=== PATIENT | female | born 1930 | race Caucasian/White ===

== ENCOUNTER 2017-07-19 09:11 | Inpatient (IN) ==
[2017-07-19 09:49] LABS: Basophils # 0.1 10*3/uL (0.0-0.2); Basophils % 0.8 % (0.0-0.8); Eosinophils # 0.1 10*3/uL (0.0-0.87); Eosinophils % 1.9 % (0.00-10.9); Hematocrit 38.5 VOL% (35.7-47.0); Hemoglobin 12.9 GM/DL (12.0-16.0); Immature Granulocytes % 0.4 %; Immature Granulocytes Absolute 0.03 #; Lymphocytes # 1.1 10*3/uL (1.4-4.0); Lymphocytes % 14.6 % (21.3-54.2); Mean Corpuscular HGB Conc 33.5 GM/DL (32-36); Mean Corpuscular Hemoglobin 30 PG (27-34); Mean Corpuscular Volume 89.7 FL (87-102); Mean Platelet Volume 9.8 FL (9.6-12.0); Monocytes # 0.5 10*3/uL (0.11-0.8); Monocytes % 6.9 % (1.7-12.7); Neutrophils # 5.5 10*3/uL (1.4-7.4); Neutrophils % 75.4 % (38.7-73.9); Platelet Count 228 T/CUMM (130-400); Red Blood Count 4.29 MC/CUMM (3.8-5.5); Red Cell Distribution Width 12.7 % (9.3-17.3); White Blood Count 7.3 T/CUMM (4-12)
[2017-07-19] MEDS ORDERED: amLODIPine 5 MG TABLET PO STA (09:50)
[2017-07-19 10:07] LABS: PT Patient Result 10.5 SECS
[2017-07-19 10:25] LABS: Albumin 3.8 G/DL (3.4-5.0); Bilirubin,Total 0.4 MG/DL (0.2-1.0); Calcium 8.9 MG/DL (8.5-10.1); Osmolality,Calculated 274.8 MOS/KG (273-304); Potassium 4.1 MMOL/L (3.5-5.1); Total Protein 7.5 G/DL (6.4-8.3)
[2017-07-19 10:26] LABS: Apearance,Urine CLEAR (Clear); Bilirubin,Urine Negative (Negative); Blood, Urine Negative (Negative); Glucose,Urine (UA) Negative (Negative); Ketones,Urine Negative (Negative); Nitrite,Urine Negative (Negative); Protein,Urine Negative; RBC,Urine <1 /HPF (0-4); Squamous Epithelial Cell,Urine Occasional /HPF (0-10); Urine Color Straw (Yellow); Urine Specific Gravity 1.006 (1.001-1.035); Urine Urobilinogen < 2.0 EU/DL (0.2-1.0); WBC,Urine <1 /HPF (0-6)
[2017-07-19 10:30] LABS: Blood Urea Nitrogen 15 MG/DL (7-18); Calcium 8.8 MG/DL (8.5-10.1); Glucose 110 MG/DL (74-106); Potassium 4.3 MMOL/L (3.5-5.1); Sodium 136 MMOL/L (136-145); Troponin I Only < 0.015 NG/ML (0.00-0.045)
[2017-07-19] MEDS ORDERED: ASPIRIN 325 MG TABLET PO STA (10:45)
[2017-07-19] MEDS ORDERED: POTASSIUM CHLORIDE 20 MEQ TABLET PO STA (10:56)
[2017-07-19 11:07] LABS: Risk Ratio 5.92; VLDL CHOLESTEROL 46.6 MG/DL
[2017-07-19] MEDS ORDERED: ONDANSETRON 4 MG/2 ML VIAL IV PRN (11:49)
[2017-07-19] MEDS ORDERED: ACETAMINOPHEN 325 MG TABLET PO PRN (11:49)
[2017-07-19] MEDS ORDERED: hydrALAZINE 20 MG/1 ML VIAL IV PRN (15:16)
[2017-07-19] MEDS: DICLOFENAC SODIUM 50 MG TABLET PO SCH (17:37)
[2017-07-20 06:23] LABS: Basophils # 0.1 10*3/uL (0.0-0.2); Eosinophils # 0.2 10*3/uL (0.0-0.87); Eosinophils % 1.8 % (0.00-10.9); Hematocrit 38.1 VOL% (35.7-47.0); Hemoglobin 12.8 GM/DL (12.0-16.0); Immature Granulocytes % 0.6 %; Immature Granulocytes Absolute 0.05 #; Lymphocytes # 1.3 10*3/uL (1.4-4.0); Lymphocytes % 15.4 % (21.3-54.2); Mean Corpuscular HGB Conc 33.6 GM/DL (32-36); Mean Corpuscular Hemoglobin 31 PG (27-34); Mean Corpuscular Volume 90.7 FL (87-102); Mean Platelet Volume 10.1 FL (9.6-12.0); Monocytes # 0.7 10*3/uL (0.11-0.8); Monocytes % 8.6 % (1.7-12.7); Neutrophils % 72.6 % (38.7-73.9); Platelet Count 229 T/CUMM (130-400); Red Cell Distribution Width 12.7 % (9.3-17.3); White Blood Count 8.2 T/CUMM (4-12)
[2017-07-20 06:53] LABS: Osmolality,Calculated 277.5 MOS/KG (273-304); Potassium 3.9 MMOL/L (3.5-5.1)
[2017-07-20] MEDS: LEVOTHYROXINE 50 MCG TABLET PO SCH (07:19)
[2017-07-20] MEDS: ASPIRIN EC 81 MG TABLET PO SCH (08:47)
[2017-07-20 09:00] LABS: Apearance,Urine Slightly Hazy (Clear); Bacteria,Urine Occasional /HPF (Few); Bilirubin,Urine Negative (Negative); Blood, Urine Negative (Negative); Glucose,Urine (UA) Negative (Negative); Hyaline Casts,Urine 5 /LPF (0-3); Ketones,Urine 20 mg/dL (Negative); Mucus,Urine Occasional /LPF (Occasional); Nitrite,Urine Negative (Negative); Protein,Urine Negative; RBC,Urine 1 /HPF (0-4); Squamous Epithelial Cell,Urine Occasional /HPF (0-10); Urine Color Yellow (Yellow); Urine Specific Gravity 1.013 (1.001-1.035); Urine Urobilinogen < 2.0 EU/DL (0.2-1.0); WBC,Urine 3 /HPF (0-6)
[2017-07-20] MEDS: MULTIVITAMIN (CENTRUM) TABLET PO SCH (10:17)
[2017-07-20] MEDS: DICLOFENAC SODIUM 50 MG TABLET PO SCH (10:18)
[2017-07-20] MEDS: PANTOPRAZOLE 40 MG TABLET PO SCH (10:18)
[2017-07-20] MEDS: HEPARIN DRIP 25,000 UNITS/500 ML PREMIX IV SCH (15:42)
[2017-07-20] MEDS: ATORVASTATIN 40 MG TABLET PO SCH (20:31)
[2017-07-20] MEDS ORDERED: HEPARIN 5,000 UNIT/1 ML VIAL IV ONE (23:00)
[2017-07-21 05:31] LABS: Basophils % 0.3 % (0.0-0.8); Eosinophils % 0.2 % (0.00-10.9); Hematocrit 38.3 VOL% (35.7-47.0); Hemoglobin 13.4 GM/DL (12.0-16.0); Immature Granulocytes % 0.5 %; Immature Granulocytes Absolute 0.07 #; Lymphocytes # 1.7 10*3/uL (1.4-4.0); Lymphocytes % 13.3 % (21.3-54.2); Mean Corpuscular Hemoglobin 30 PG (27-34); Mean Corpuscular Volume 86.8 FL (87-102); Mean Platelet Volume 10.1 FL (9.6-12.0); Monocytes % 7.4 % (1.7-12.7); Neutrophils # 10.1 10*3/uL (1.4-7.4); Neutrophils % 78.3 % (38.7-73.9); Platelet Count 255 T/CUMM (130-400); Red Blood Count 4.41 MC/CUMM (3.8-5.5); Red Cell Distribution Width 12.7 % (9.3-17.3); White Blood Count 12.9 T/CUMM (4-12)
[2017-07-21] MEDS: LEVOTHYROXINE 50 MCG TABLET PO SCH (05:57)
[2017-07-21 06:19] LABS: Albumin 3.7 G/DL (3.4-5.0); Bilirubin,Direct 0.11 MG/DL (0.0-0.20); Bilirubin,Total 1.1 MG/DL (0.2-1.0); Osmolality,Calculated 267.4 MOS/KG (273-304); Potassium 3.5 MMOL/L (3.5-5.1); Total Protein 7.7 G/DL (6.4-8.3)
[2017-07-21] MEDS: MULTIVITAMIN (CENTRUM) TABLET PO SCH (09:00)
[2017-07-21] MEDS: PANTOPRAZOLE 40 MG TABLET PO SCH (09:00)
[2017-07-21] MEDS: ASPIRIN EC 81 MG TABLET PO SCH (09:01)
[2017-07-21] MEDS ORDERED: HEPARIN 5,000 UNIT/1 ML VIAL IV ONE (11:52)
[2017-07-21] MEDS: HEPARIN DRIP 25,000 UNITS/500 ML PREMIX IV SCH (18:24)
[2017-07-21] MEDS: ATORVASTATIN 40 MG TABLET PO SCH (20:10)
[2017-07-22] MEDS: HEPARIN DRIP 25,000 UNITS/500 ML PREMIX IV SCH ×3 (00:50→15:49)
[2017-07-22] MEDS: LEVOTHYROXINE 50 MCG TABLET PO SCH (05:36)
[2017-07-22 06:01] LABS: Basophils # 0.1 10*3/uL (0.0-0.2); Basophils % 0.5 % (0.0-0.8); Eosinophils # 0.2 10*3/uL (0.0-0.87); Eosinophils % 1.7 % (0.00-10.9); Hematocrit 39.9 VOL% (35.7-47.0); Hemoglobin 13.6 GM/DL (12.0-16.0); Immature Granulocytes % 0.7 %; Immature Granulocytes Absolute 0.09 #; Lymphocytes # 2.2 10*3/uL (1.4-4.0); Lymphocytes % 16.4 % (21.3-54.2); Mean Corpuscular HGB Conc 34.1 GM/DL (32-36); Mean Corpuscular Hemoglobin 31 PG (27-34); Mean Corpuscular Volume 89.7 FL (87-102); Mean Platelet Volume 9.7 FL (9.6-12.0); Monocytes % 7.8 % (1.7-12.7); Neutrophils # 9.6 10*3/uL (1.4-7.4); Neutrophils % 72.9 % (38.7-73.9); Platelet Count 230 T/CUMM (130-400); Red Blood Count 4.45 MC/CUMM (3.8-5.5); Red Cell Distribution Width 12.8 % (9.3-17.3); White Blood Count 13.1 T/CUMM (4-12)
[2017-07-22 06:16] LABS: PT Patient Result 10.9 SECS
[2017-07-22 06:37] LABS: Partial Thromboplastin Time 48.2 SECS (0-40)
[2017-07-22 06:43] LABS: Calcium 8.7 MG/DL (8.5-10.1); Osmolality,Calculated 271.1 MOS/KG (273-304); Potassium 3.7 MMOL/L (3.5-5.1); Thyroid Stimulating Hormone 4.53 uIU/ml (0.358-3.74)
[2017-07-22] MEDS: PANTOPRAZOLE 40 MG TABLET PO SCH (08:46)
[2017-07-22] MEDS: ASPIRIN EC 81 MG TABLET PO SCH (08:46)
[2017-07-22] MEDS: MULTIVITAMIN (CENTRUM) TABLET PO SCH (08:46)
[2017-07-22 11:29] LABS: Apearance,Urine CLOUDY (Clear); Bacteria,Urine Many /HPF (Few); Bilirubin,Urine Negative (Negative); Blood, Urine Moderate mg/dL (Negative); Glucose,Urine (UA) Negative (Negative); Ketones,Urine Negative (Negative); Nitrite,Urine Positive (Negative); Protein,Urine Negative; Squamous Epithelial Cell,Urine Occasional /HPF (0-10); Urine Color Amber (Yellow); Urine Specific Gravity 1.014 (1.001-1.035); Urine Urobilinogen < 2.0 EU/DL (0.2-1.0); WBC,Urine 234 /HPF (0-6)
[2017-07-22] MEDS ORDERED: ONDANSETRON 4 MG/2 ML VIAL IV PRN (12:15)
[2017-07-22] MEDS ORDERED: ACETAMINOPHEN 325 MG TABLET PO PRN ×2 (12:15→13:08)
[2017-07-22] MEDS: LEVOFLOXACIN INJ 500 MG in PREMIX 1 EACH IV SCH (14:11)
[2017-07-22] MEDS: ATORVASTATIN 40 MG TABLET PO SCH (21:03)
[2017-07-23] MEDS ORDERED: HALOPERIDOL 5 MG/ML AMP IM ONE (00:30)
[2017-07-23 01:39] LABS: Basophils # 0.1 10*3/uL (0.0-0.2); Basophils % 0.8 % (0.0-0.8); Eosinophils # 0.2 10*3/uL (0.0-0.87); Eosinophils % 1.6 % (0.00-10.9); Hematocrit 38.4 VOL% (35.7-47.0); Hemoglobin 13.2 GM/DL (12.0-16.0); Immature Granulocytes % 0.5 %; Immature Granulocytes Absolute 0.07 #; Lymphocytes % 14.8 % (21.3-54.2); Mean Corpuscular HGB Conc 34.4 GM/DL (32-36); Mean Corpuscular Hemoglobin 30 PG (27-34); Mean Corpuscular Volume 88.5 FL (87-102); Mean Platelet Volume 9.6 FL (9.6-12.0); Monocytes # 1.1 10*3/uL (0.11-0.8); Neutrophils # 9.8 10*3/uL (1.4-7.4); Neutrophils % 74.3 % (38.7-73.9); Platelet Count 228 T/CUMM (130-400); Red Blood Count 4.34 MC/CUMM (3.8-5.5); Red Cell Distribution Width 12.6 % (9.3-17.3); White Blood Count 13.2 T/CUMM (4-12)
[2017-07-23 02:57] LABS: Albumin 3.7 G/DL (3.4-5.0); Bilirubin,Direct 0.15 MG/DL (0.0-0.20); Bilirubin,Indirect 0.4 MG/DL (0.0-1.0); Bilirubin,Total 0.5 MG/DL (0.2-1.0); Calcium 8.9 MG/DL (8.5-10.1); Osmolality,Calculated 270.2 MOS/KG (273-304); Potassium 3.7 MMOL/L (3.5-5.1); Total Protein 7.4 G/DL (6.4-8.3)
[2017-07-23] MEDS: HEPARIN DRIP 25,000 UNITS/500 ML PREMIX IV SCH (05:23)
[2017-07-23] MEDS: LEVOTHYROXINE 50 MCG TABLET PO SCH (06:22)
[2017-07-23] MEDS: MULTIVITAMIN (CENTRUM) TABLET PO SCH (09:43)
[2017-07-23] MEDS: PANTOPRAZOLE 40 MG TABLET PO SCH (09:44)
[2017-07-23] MEDS: ASPIRIN EC 81 MG TABLET PO SCH (09:44)
[2017-07-23] MEDS: LEVOFLOXACIN INJ 500 MG in PREMIX 1 EACH IV SCH (16:57)
[2017-07-23 19:24] LABS: Basophils # 0.1 10*3/uL (0.0-0.2); Basophils % 0.7 % (0.0-0.8); Eosinophils # 0.3 10*3/uL (0.0-0.87); Eosinophils % 2.5 % (0.00-10.9); Hematocrit 39.8 VOL% (35.7-47.0); Hemoglobin 13.2 GM/DL (12.0-16.0); Immature Granulocytes % 0.9 %; Immature Granulocytes Absolute 0.11 #; Lymphocytes # 1.5 10*3/uL (1.4-4.0); Lymphocytes % 12.7 % (21.3-54.2); Mean Corpuscular HGB Conc 33.2 GM/DL (32-36); Mean Corpuscular Hemoglobin 30 PG (27-34); Mean Corpuscular Volume 89.4 FL (87-102); Monocytes % 8.6 % (1.7-12.7); Neutrophils % 74.6 % (38.7-73.9); Platelet Count 274 T/CUMM (130-400); Red Blood Count 4.45 MC/CUMM (3.8-5.5); Red Cell Distribution Width 12.9 % (9.3-17.3)
[2017-07-23 19:36] LABS: Albumin 3.5 G/DL (3.4-5.0); Bilirubin,Total 0.4 MG/DL (0.2-1.0); Calcium 9.1 MG/DL (8.5-10.1); Osmolality,Calculated 264.7 MOS/KG (273-304); Potassium 3.8 MMOL/L (3.5-5.1); Total Protein 7.8 G/DL (6.4-8.3)
[2017-07-23] MEDS: ATORVASTATIN 40 MG TABLET PO SCH (21:28)
[2017-07-24] MEDS: LEVOTHYROXINE 50 MCG TABLET PO SCH (06:25)
[2017-07-24] MEDS: MULTIVITAMIN (CENTRUM) TABLET PO SCH (10:27)
[2017-07-24] MEDS: HEPARIN DRIP 25,000 UNITS/500 ML PREMIX IV SCH ×2 (10:27→14:52)
[2017-07-24] MEDS: ASPIRIN EC 81 MG TABLET PO SCH (10:27)
[2017-07-24] MEDS: PANTOPRAZOLE 40 MG TABLET PO SCH (10:27)
[2017-07-24] MEDS ORDERED: BISACODYL 10 MG SUPP RECTAL PRN (11:39)
[2017-07-24] MEDS: LEVOFLOXACIN INJ 500 MG in PREMIX 1 EACH IV SCH (14:53)
[2017-07-24] MEDS ORDERED: MAGNESIUM HYDROXIDE SUSP 30 ML UDCUP PO ONE (15:29)
[2017-07-24] MEDS ORDERED: LACTULOSE 20 GM/30 ML UDCUP PO ONE (15:30)
[2017-07-24] MEDS ORDERED: BISACODYL 5 MG TABLET PO ONE (15:31)
[2017-07-24] MEDS: ATORVASTATIN 40 MG TABLET PO SCH (20:43)
[2017-07-25] MEDS: LEVOTHYROXINE 50 MCG TABLET PO SCH (05:44)
[2017-07-25] MEDS ORDERED: HEPARIN 10,000 UNIT/10 ML VIAL ONE (06:55)
[2017-07-25] MEDS ORDERED: ETOMIDATE 40 MG/20 ML VIAL IV ONE (06:55)
[2017-07-25] MEDS ORDERED: MIDAZOLAM 2 MG/2 ML VIAL ONE (06:55)
[2017-07-25] MEDS ORDERED: HEPARIN/NACL 0.9% 2 UNITS/ML 500 ML IV ONE (06:55)
[2017-07-25] MEDS ORDERED: PHENYLEPHRINE 10 MG/1 ML VIAL IV ONE (06:55)
[2017-07-25] MEDS ORDERED: fentaNYL 100 MCG/2 ML VIAL ONE (06:55)
[2017-07-25] MEDS ORDERED: NITROGLYCERIN DRIP 50 MG/250 ML BOTTLE IV ONE (06:56)
[2017-07-25] MEDS ORDERED: LACTATED RINGERS 1,000 ML IV ONE (06:56)
[2017-07-25] MEDS ORDERED: ROCURONIUM 100 MG/10 ML VIAL IV ONE (06:56)
[2017-07-25] MEDS ORDERED: PROTAMINE SULFATE 50 MG/5 ML VIAL IV ONE (06:56)
[2017-07-25] MEDS ORDERED: SODIUM CHLORIDE 0.9% 250 ML IV ONE (06:56)
[2017-07-25] MEDS ORDERED: VANCOMYCIN INJ 500 MG in SODIUM CHLORIDE 0.9% 100 ML IV ONE (07:00)
[2017-07-25] MEDS ORDERED: HEPARIN 5,000 UNIT/1 ML VIAL ONE (08:03)
[2017-07-25] MEDS ORDERED: DEXTROSE 50% 25 GM/50 ML VIAL IV PRN (10:29)
[2017-07-25] MEDS ORDERED: HYDROmorphone 2 MG/1 ML VIAL IV PRN ×2 (10:29)
[2017-07-25] MEDS ORDERED: ONDANSETRON 4 MG/2 ML VIAL IV PRN ×2 (10:29→11:06)
[2017-07-25] MEDS ORDERED: GLUCAGON 1 MG VIAL IM PRN (10:29)
[2017-07-25] MEDS ORDERED: NALOXONE 0.4 MG/ML VIAL IV PRN (10:29)
[2017-07-25] MEDS ORDERED: PROMETHAZINE 25 MG/1 ML VIAL IM PRN (10:29)
[2017-07-25] MEDS ORDERED: NITROPRUSSIDE 100 MG in DEXTROSE 5% 250 ML IV SCH (10:30)
[2017-07-25] MEDS ORDERED: PHENYLEPHRINE DRIP 40 MG/250 ML PREMIX IV SCH (10:30)
[2017-07-25] MEDS ORDERED: DEXAMETHASONE 10 MG/1 ML VIAL ONE (10:51)
[2017-07-25] MEDS ORDERED: SEVOFLURANE 1 UNIT/15 MINUTE INH ONE (10:52)
[2017-07-25] MEDS: MORPHINE 10 MG/1 ML VIAL IV PRN ×2 (11:00→11:05)
[2017-07-25] MEDS ORDERED: MORPHINE 4 MG/1 ML VIAL IV PRN ×2 (11:00)
[2017-07-25] MEDS ORDERED: ONDANSETRON 4 MG/2 ML VIAL ONE (11:02)
[2017-07-25] MEDS ORDERED: MORPHINE 10 MG/1 ML VIAL ONE (11:02)
[2017-07-25] MEDS: POLYETHYLENE GLYCOL POWDER 17 GM PACK PO SCH (11:23)
[2017-07-25] MEDS: PANTOPRAZOLE 40 MG TABLET PO SCH (11:23)
[2017-07-25] MEDS: MULTIVITAMIN (CENTRUM) TABLET PO SCH (11:23)
[2017-07-25] MEDS: ASPIRIN EC 81 MG TABLET PO SCH (11:23)
[2017-07-25] MEDS: LACTATED RINGERS 1,000 ML IV SCH ×2 (12:06→21:15)
[2017-07-25] MEDS: LEVOFLOXACIN INJ 500 MG in PREMIX 1 EACH IV SCH (14:15)
[2017-07-25] MEDS: hydrALAZINE 20 MG/1 ML VIAL IV PRN ×2 (15:37→20:44)
[2017-07-25] MEDS: ATORVASTATIN 40 MG TABLET PO SCH (20:26)
[2017-07-25] MEDS ORDERED: CLORAZEPATE 3.75 MG TABLET PO PRN (22:44)
[2017-07-26 03:52] LABS: Basophils % 0.2 % (0.0-0.8); Hematocrit 34.2 VOL% (35.7-47.0); Hemoglobin 11.6 GM/DL (12.0-16.0); Immature Granulocytes % 0.9 %; Immature Granulocytes Absolute 0.11 #; Lymphocytes # 0.9 10*3/uL (1.4-4.0); Lymphocytes % 7.2 % (21.3-54.2); Mean Corpuscular HGB Conc 33.9 GM/DL (32-36); Mean Corpuscular Hemoglobin 31 PG (27-34); Mean Corpuscular Volume 90.7 FL (87-102); Mean Platelet Volume 9.9 FL (9.6-12.0); Neutrophils # 10.5 10*3/uL (1.4-7.4); Neutrophils % 83.7 % (38.7-73.9); Platelet Count 237 T/CUMM (130-400); Red Blood Count 3.77 MC/CUMM (3.8-5.5); White Blood Count 12.6 T/CUMM (4-12)
[2017-07-26 04:25] LABS: Calcium 8.1 MG/DL (8.5-10.1)
[2017-07-26 04:26] LABS: Osmolality,Calculated 268.4 MOS/KG (273-304)
[2017-07-26] MEDS: LEVOTHYROXINE 50 MCG TABLET PO SCH (05:48)
[2017-07-26] MEDS: LACTATED RINGERS 1,000 ML IV SCH ×2 (06:58→18:21)
[2017-07-26] MEDS: PANTOPRAZOLE 40 MG TABLET PO SCH (08:01)
[2017-07-26] MEDS: POLYETHYLENE GLYCOL POWDER 17 GM PACK PO SCH (08:01)
[2017-07-26] MEDS: ASPIRIN EC 81 MG TABLET PO SCH (08:01)
[2017-07-26] MEDS: CLOPIDOGREL 75 MG TABLET PO SCH (08:01)
[2017-07-26] MEDS: MULTIVITAMIN (CENTRUM) TABLET PO SCH (08:02)
[2017-07-26] MEDS ORDERED: diphenhydrAMINE CAP 25 MG CAPSULE PO PRN (10:32)
[2017-07-26] MEDS: ATORVASTATIN 40 MG TABLET PO SCH (20:25)
[2017-07-27] MEDS: LACTATED RINGERS 1,000 ML IV SCH (04:00)
[2017-07-27] MEDS: LEVOTHYROXINE 50 MCG TABLET PO SCH (06:09)
[2017-07-27] MEDS: CLOPIDOGREL 75 MG TABLET PO SCH (09:36)
[2017-07-27] MEDS: ASPIRIN EC 81 MG TABLET PO SCH (09:36)
[2017-07-27] MEDS: MULTIVITAMIN (CENTRUM) TABLET PO SCH (09:36)
[2017-07-27] MEDS: POLYETHYLENE GLYCOL POWDER 17 GM PACK PO SCH (09:36)
[2017-07-27] MEDS: PANTOPRAZOLE 40 MG TABLET PO SCH (09:36)
[2017-07-27 11:21] VITALS: BP 154/96
== END 2017-07-27 11:50 | DRG 38 ==
LOC: N.ED 09:11 → SUATTDRO 10:44 → N.EDINP 10:44 → N.2E 12:21 → N.CC 07-20 07:39 → N.TELES 07-22 16:28 → N.ICU 07-25 09:24 → N.3E 07-26 16:51
PROVIDERS: ADMIT Internal Medicine; ATTEND Internal Medicine Geriatric Medicine

== ENCOUNTER 2017-12-10 03:00 | Inpatient (IN) ==
[2017-12-10] MEDS ORDERED: ONDANSETRON 4 MG/2 ML VIAL IV STA (03:28)
[2017-12-10] MEDS ORDERED: MORPHINE 4 MG/1 ML VIAL IV STA ×2 (03:28→04:54)
[2017-12-10 03:54] LABS: Basophils # 0.1 10*3/uL (0.0-0.2); Basophils % 0.7 % (0.0-0.8); Eosinophils # 0.5 10*3/uL (0.0-0.87); Eosinophils % 5.5 % (0.00-10.9); Hematocrit 32.2 VOL% (35.7-47.0); Hemoglobin 10.5 GM/DL (12.0-16.0); Immature Granulocytes % 0.6 %; Immature Granulocytes Absolute 0.05 #; Lymphocytes # 1.3 10*3/uL (1.4-4.0); Mean Corpuscular HGB Conc 32.6 GM/DL (32-36); Mean Corpuscular Hemoglobin 30 PG (27-34); Mean Corpuscular Volume 91.5 FL (87-102); Mean Platelet Volume 9.8 FL (9.6-12.0); Monocytes # 0.5 10*3/uL (0.11-0.8); Monocytes % 5.6 % (1.7-12.7); Neutrophils # 6.3 10*3/uL (1.4-7.4); Neutrophils % 72.6 % (38.7-73.9); Platelet Count 188 T/CUMM (130-400); Red Blood Count 3.52 MC/CUMM (3.8-5.5); Red Cell Distribution Width 13.1 % (9.3-17.3); White Blood Count 8.6 T/CUMM (4-12)
[2017-12-10 04:02] LABS: INR 1.1; PT Patient Result 11.2 SECS; Partial Thromboplastin Time 23.7 SECS (0-40)
[2017-12-10 04:14] LABS: Albumin 3.3 G/DL (3.4-5.0); Bilirubin,Total 0.5 MG/DL (0.2-1.0); Calcium 8.6 MG/DL (8.5-10.1); Osmolality,Calculated 278.4 MOS/KG (273-304); Potassium 3.3 MMOL/L (3.5-5.1); Total Protein 6.3 G/DL (6.4-8.3)
[2017-12-10] MEDS ORDERED: MORPHINE 4 MG/1 ML VIAL IV PRN (05:23)
[2017-12-10] MEDS ORDERED: ACETAMINOPHEN 325 MG TABLET PO PRN (05:23)
[2017-12-10] MEDS ORDERED: ONDANSETRON 4 MG/2 ML VIAL IV PRN (05:23)
[2017-12-10] MEDS: SODIUM CHLORIDE 0.9% 1,000 ML IV SCH (06:39)
[2017-12-10 07:26] LABS: Apearance,Urine CLEAR (Clear); Bilirubin,Urine Negative (Negative); Blood, Urine Small mg/dL (Negative); Glucose,Urine (UA) Negative (Negative); Ketones,Urine Negative (Negative); Mucus,Urine Occasional /LPF (Occasional); Nitrite,Urine Negative (Negative); Protein,Urine Negative; RBC,Urine 5 /HPF (0-4); Squamous Epithelial Cell,Urine Occasional /HPF (0-10); Urine Color Yellow (Yellow); Urine Urobilinogen < 2.0 EU/DL (0.2-1.0); WBC,Urine 55 /HPF (0-6)
[2017-12-10] MEDS ORDERED: POTASSIUM CHLORIDE 20 MEQ TABLET PO ONE (08:26)
[2017-12-10] MEDS ORDERED: CLINDAMYCIN INJ 600 MG in PREMIX 1 EACH IV ONE ×2 (10:46→12:00)
[2017-12-10] MEDS ORDERED: BUPIVACAINE 0.5% 50 ML VIAL ONE (11:12)
[2017-12-10] MEDS ORDERED: EPINEPHrine 1 MG/ML VIAL ONE (11:12)
[2017-12-10] MEDS ORDERED: LACTULOSE 20 GM/30 ML UDCUP PO PRN (12:08)
[2017-12-10] MEDS ORDERED: MAGNESIUM HYDROXIDE SUSP 30 ML UDCUP PO PRN (12:08)
[2017-12-10] MEDS ORDERED: fentaNYL 100 MCG/2 ML VIAL ONE (12:39)
[2017-12-10] MEDS ORDERED: ROCURONIUM 100 MG/10 ML VIAL IV ONE (12:40)
[2017-12-10] MEDS ORDERED: ePHEDrine 50 MG/ML AMP ONE (12:40)
[2017-12-10] MEDS ORDERED: NEOSTIGMINE 10 MG/10 ML VIAL ONE (12:40)
[2017-12-10] MEDS ORDERED: ONDANSETRON 4 MG/2 ML VIAL ONE (12:40)
[2017-12-10] MEDS ORDERED: ETOMIDATE 40 MG/20 ML VIAL IV ONE (12:40)
[2017-12-10] MEDS ORDERED: ACETAMINOPHEN 1,000 MG/100 ML VIAL IV ONE (12:40)
[2017-12-10] MEDS ORDERED: GLYCOPYRROLATE 0.4 MG/2 ML VIAL ONE (12:40)
[2017-12-10] MEDS ORDERED: KETOROLAC 30 MG/1 ML VIAL ONE (12:40)
[2017-12-10] MEDS ORDERED: SEVOFLURANE 1 UNIT/15 MINUTE INH ONE (12:41)
[2017-12-10] MEDS ORDERED: SUGAMMADEX 200 MG/2 ML VIAL IV ONE (14:01)
[2017-12-10 14:06] LABS: Basophils # 0.1 10*3/uL (0.0-0.2); Basophils % 0.6 % (0.0-0.8); Eosinophils # 0.5 10*3/uL (0.0-0.87); Eosinophils % 5.2 % (0.00-10.9); Hematocrit 32.4 VOL% (35.7-47.0); Hemoglobin 10.3 GM/DL (12.0-16.0); Immature Granulocytes % 0.5 %; Immature Granulocytes Absolute 0.05 #; Lymphocytes # 1.4 10*3/uL (1.4-4.0); Lymphocytes % 14.4 % (21.3-54.2); Mean Corpuscular HGB Conc 31.8 GM/DL (32-36); Mean Corpuscular Hemoglobin 30 PG (27-34); Mean Corpuscular Volume 94.2 FL (87-102); Mean Platelet Volume 9.9 FL (9.6-12.0); Monocytes # 0.9 10*3/uL (0.11-0.8); Monocytes % 9.2 % (1.7-12.7); Neutrophils % 70.1 % (38.7-73.9); Platelet Count 170 T/CUMM (130-400); Red Blood Count 3.44 MC/CUMM (3.8-5.5); White Blood Count 9.9 T/CUMM (4-12)
[2017-12-10] MEDS: CLINDAMYCIN INJ 600 MG in PREMIX 1 EACH IV SCH (19:13)
[2017-12-11] MEDS: SODIUM CHLORIDE 0.9% 1,000 ML IV SCH (03:14)
[2017-12-11] MEDS: MORPHINE 4 MG/1 ML VIAL IV PRN ×2 (03:31→18:00)
[2017-12-11] MEDS: CLINDAMYCIN INJ 600 MG in PREMIX 1 EACH IV SCH ×2 (03:42→11:11)
[2017-12-11 06:28] LABS: Basophils # 0.1 10*3/uL (0.0-0.2); Basophils % 0.9 % (0.0-0.8); Eosinophils # 0.6 10*3/uL (0.0-0.87); Eosinophils % 7.5 % (0.00-10.9); Hematocrit 28.3 VOL% (35.7-47.0); Hemoglobin 8.8 GM/DL (12.0-16.0); Immature Granulocytes % 0.4 %; Immature Granulocytes Absolute 0.03 #; Lymphocytes % 13.3 % (21.3-54.2); Mean Corpuscular HGB Conc 31.1 GM/DL (32-36); Mean Corpuscular Hemoglobin 30 PG (27-34); Mean Corpuscular Volume 96.6 FL (87-102); Mean Platelet Volume 10.6 FL (9.6-12.0); Monocytes # 0.6 10*3/uL (0.11-0.8); Monocytes % 7.7 % (1.7-12.7); Neutrophils # 5.5 10*3/uL (1.4-7.4); Neutrophils % 70.2 % (38.7-73.9); Platelet Count 166 T/CUMM (130-400); Red Blood Count 2.93 MC/CUMM (3.8-5.5); Red Cell Distribution Width 13.1 % (9.3-17.3); White Blood Count 7.8 T/CUMM (4-12)
[2017-12-11 06:42] LABS: Calcium 7.6 MG/DL (8.5-10.1); Osmolality,Calculated 280.3 MOS/KG (273-304)
[2017-12-11] MEDS ORDERED: CLORAZEPATE 3.75 MG TABLET PO PRN (08:21)
[2017-12-11] MEDS: CLOPIDOGREL 75 MG TABLET PO SCH (11:13)
[2017-12-11] MEDS: FLUoxetine 20 MG CAPSULE PO SCH (11:13)
[2017-12-11] MEDS: rOPINIRole 0.25 MG TABLET PO SCH ×3 (11:13→20:10)
[2017-12-11] MEDS: DICLOFENAC SODIUM 50 MG TABLET PO SCH (18:00)
[2017-12-11] MEDS ORDERED: ATORVASTATIN 40 MG TABLET PO SCH (21:00)
[2017-12-12] MEDS: MORPHINE 4 MG/1 ML VIAL IV PRN ×2 (01:14→04:35)
[2017-12-12 05:15] LABS: Basophils # 0.1 10*3/uL (0.0-0.2); Basophils % 0.8 % (0.0-0.8); Eosinophils # 0.5 10*3/uL (0.0-0.87); Eosinophils % 4.2 % (0.00-10.9); Hematocrit 27.1 VOL% (35.7-47.0); Hemoglobin 8.6 GM/DL (12.0-16.0); Immature Granulocytes % 0.7 %; Immature Granulocytes Absolute 0.08 #; Lymphocytes % 8.7 % (21.3-54.2); Mean Corpuscular HGB Conc 31.7 GM/DL (32-36); Mean Corpuscular Hemoglobin 30 PG (27-34); Mean Corpuscular Volume 94.1 FL (87-102); Mean Platelet Volume 10.6 FL (9.6-12.0); Monocytes # 0.8 10*3/uL (0.11-0.8); Neutrophils # 8.7 10*3/uL (1.4-7.4); Neutrophils % 78.6 % (38.7-73.9); Platelet Count 181 T/CUMM (130-400); Red Blood Count 2.88 MC/CUMM (3.8-5.5); Red Cell Distribution Width 13.2 % (9.3-17.3); White Blood Count 11.1 T/CUMM (4-12)
[2017-12-12 05:31] LABS: Osmolality,Calculated 271.8 MOS/KG (273-304); Potassium 3.7 MMOL/L (3.5-5.1)
[2017-12-12] MEDS: SODIUM CHLORIDE 0.9% 1,000 ML IV SCH ×2 (07:28→07:29)
[2017-12-12] MEDS ORDERED: ASPIRIN EC 81 MG TABLET PO SCH (08:00)
[2017-12-12] MEDS ORDERED: LEVOTHYROXINE 50 MCG TABLET PO SCH (08:00)
[2017-12-12] MEDS ORDERED: FOLIC ACID PO SCH (08:00)
[2017-12-12] MEDS ORDERED: MULTIVITAMIN (CENTRUM) TABLET PO SCH (08:00)
[2017-12-12] MEDS ORDERED: MV IRON MIN PO SCH (08:00)
[2017-12-12] MEDS: FLUoxetine 20 MG CAPSULE PO SCH (08:17)
[2017-12-12] MEDS: CLOPIDOGREL 75 MG TABLET PO SCH (08:17)
[2017-12-12] MEDS: DICLOFENAC SODIUM 50 MG TABLET PO SCH (08:17)
[2017-12-12] MEDS: rOPINIRole 0.25 MG TABLET PO SCH (08:18)
[2017-12-12 12:03] VITALS: BP 118/70
== END 2017-12-12 12:56 | DRG 481 ==
LOC: EDBD → EDUNIT# → N.ED 03:00 → N.EDINP 05:17 → N.3E 06:07
PROVIDERS: ADMIT Internal Medicine; ATTEND Internal Medicine